=== PATIENT | male | born 1975 | race Hispanic/Latino ===

== ENCOUNTER 2017-09-02 15:41 | Emergency (ER) | payer OTHER, SELFPAY ==
[2017-09-02] MEDS ORDERED: Ondansetron HCl/PF 4 MG/2 ML Vial ONE (15:53)
[2017-09-02] MEDS ORDERED: Morphine 4 MG/ML Carpuject ONE (15:53)
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
== END 2017-09-02 17:14 | disposition home or self-care (01) ==
LOC: ERS 15:41
DX: S60.212A Contusion of left wrist, initial encounter (principal); M25.512 Pain in left shoulder; V43.52XA Car driver injured in collision with other type car in traffic accident, initial encounter
CPT/HCPCS: 96374; 96375; J2270; J2405